=== PATIENT | male | born 1995 | race Caucasian/White ===

== ENCOUNTER 2016-08-14 10:52 | Emergency (ER) | payer BC ==
[2016-08-14 11:02] VITALS: BP 120/86
--- NOTE | 2016-08-14 11:52 | ERNOTE ---
Chest Pain/Cardiac HPI Date of Service: 08/14/16 Chief Complaint: Chest Pain Time Seen by Provider: 08/14/16 11:50 Source: patient, RN notes reviewed Exam Limitations: no limitations Immunizations: IMMUNIZATION HX History of Influenza Vaccine No Allergies/Adverse Reactions: Allergies No Known Allergies Allergy (Verified 08/14/16 11:03) Home Medications: HOME MEDICATIONS NK [No Home Medication] 01/26/14 [Last Taken Unknown] Narrative: 21 y/o male ambulatory to the ED for midsternal chest pain that began last evening. It has been intermittent. He reports missing dinner and having a gnawing feeling in his epigastrum and chest when he got home. He then ate, thinking this would help, but the pain became worse. He took Tums with some relief. He also reports having a cough and nasal congestion for about a week, but no fevers or chills. He chews tobacco and has occasional heart burn. He reports not being overly concerned about the pain, but his mother felt that he needed evaluation. Date (Duration): 08/13/16 Timing: intermittent Severity/Quality: moderate, aching, burning Location: substernal Chest Pain Radiation: no radiation Modifying Factors - Improves: Present: antacids Modifying Factors - Worsens: Present: eating Nitro Today/Relief: no nitro taken today Aspirin Treatment Today: no aspirin today Associated Symptoms: Present: headache, cough, heartburn. Absent: dizziness, syncope, shortness of breath, diaphoresis, fever/chills, palpitations, nausea, vomiting, abdominal pain, back pain, swelling/lump in chest Prior Chest Pain/Cardiac Workup: Reports: no prior cardiac workup. Denies: prior chest pain Prior Treatment: Denies: recently seen Review of Systems - Review of Systems Constitutional: Absent: recent illness, fever, chills, fatigue, malaise EYE: Present: no symptoms reported ENT: Present: nose congestion, nasal drainage. Absent: ear pain, sore throat Respiratory: Present: cough. Absent: shortness of breath, wheezing Cardiology: Present: chest pain. Absent: palpitations, syncope Gastrointestinal/Abdominal: Absent: diarrhea, constipation, abdominal pain Genitourinary: Present: no symptoms reported Musculoskeletal: Absent: back pain, neck pain Skin: Present: no symptoms reported Neurological: Present: headache. Absent: dizziness/light-headedness, weakness Endocrine: Present: no symptoms reported Hematologic/Lymphatic: Present: no symptoms reported Psych: Absent: anxiety - Patient's Past Medical History Patient History - Medical: Obesity Patient History - Cardiac/Respiratory: No pertinent hx Patient History - Cancer: No Hx of Cancer Patient History - Surgical Procedures: No surgical history Patient History - Other: None - Social History Living Situations: home Psych History: No pertinent hx Smoking Status: Never smoker Do you dip or chew tobacco: Yes Alcohol Use: occasionally Drug Use: none - Immunizations History of Influenza Vaccine: No Physical Exam - Physical Exam General Appearance: Present: wd/wn, alert, no apparent distress, obese Eye Exam: Normal inspection: bilateral Ears, Nose, Throat: Present: hearing grossly normal, cerumen impaction, nasal congestion, normal pharynx. Absent: sinus pain/drainage Neck: Present: normal inspection, nontender, supple Respiratory: Present: no respiratory distress, normal breath sounds, no accessory muscle use, chest nontender, lungs clear Cardiovascular/Chest: Present: regular rate, rhythm, no murmur, normal peripheral pulses Gastrointestinal/Abdominal: Present: nontender, soft Neurological Exam: Present: alert, oriented, normal mood/affect, no motor/ sensory deficits Skin Exam: Present: normal color, warm/dry ED Progress - Vital Signs Patient's Vital Signs:: I have reviewed the patient's vital signs. Vital Signs: Vital Signs 08/14/16 10:58 Temperature 35.8 C L Pulse Rate 62 Respiratory 18 Rate Blood Pressure 120/86 O2 Sat by Pulse 99 Oximetry - EKG EKG: NSR EKG read: Reviewed by me - Progress/Reassessment Chief Complaint: Chest Pain Progress:: Improved Progress Note-Subjective: 08/14/16 12:28 Symptoms relieved with GI cocktail Departure - Departure Clinical Impression: Gastroesophageal reflux Qualifiers: Esophagitis presence: esophagitis presence not specified Qualified Code(s): K21.9 - Gastro-esophageal reflux disease without esophagitis Disposition: Home self-care Condition: Good Instructions: Gastroesophageal Reflux Disease, Adult, [id number] Additional Instructions: Try over the counter Zantac or Mylanta/Maalox if symptoms return Consider taking something to prevent symptoms - like Prilosec - if they become more frequent Stop chewing tobacco Referrals: Anil Bentley DO [Primary Care Provider] -
[2016-08-14] MEDS ORDERED: LIDOCAINE HCL 20 ML UDC PO ONE (12:00)
[2016-08-14] MEDS ORDERED: MAG HYDROX/ALUMINUM HYD/SIMETH 30 ML UDC PO ONE (12:00)
[2016-08-14] MEDS ORDERED: SUCRALFATE 1 G/10 ML UDC PO ONE (12:00)
== END 2016-08-14 12:43 | disposition home or self-care (01) ==
LOC: ER 10:52
DX: K21.9 Gastro-esophageal reflux disease without esophagitis (principal); Z72.0 Tobacco use

== ENCOUNTER 2017-08-28 21:42 | Emergency (ER) | payer OTHER ==
[2017-08-28 21:50] VITALS: BP 148/67
[2017-08-28] MEDS ORDERED: DIPHTH,PERTUSS(ACELL),TET VAC 0.5 ML VIAL IM ONE ×2 (22:05→22:09)
[2017-08-28] MEDS ORDERED: CEPHALEXIN MONOHYDRATE 250 MG CAPSULE PO ONE (22:06)
[2017-08-28] MEDS ORDERED: CEPHALEXIN MONOHYDRATE 250 MG CAPSULE ONE (22:08)
--- NOTE | 2017-08-28 22:13 | ERNOTE ---
Medical Problem HPI - Narrative Date of Service: 08/28/17 - General Chief Complaint: Hand Injury/Pain Time Seen by Provider: 08/28/17 21:57 Source: patient Exam Limitations: no limitations - Immun/Allergies/Home Medications Immunizations: IMMUNIZATION HX Immunizations Up to Date Yes History of Influenza Vaccine No Allergies/Adverse Reactions: Allergies No Known Allergies Allergy (Verified 08/28/17 21:49) Home Medications: HOME MEDICATIONS Cephalexin Monohydrate [Keflex] 500 mg PO QID #40 cap 08/28/17 [Last Taken Unknown] - History of Present History Narrative: caught hand in winch Timing: constant Severity: moderate Modifying Factors - (Improves): Present: rest Modifying Factors - (Worsens): Present: movement Review of Systems - Narrative Narrative: unremarkable - Review of Systems Constitutional: Present: See HPI EYE: Present: no symptoms reported ENT: Present: no symptoms reported Respiratory: Present: no symptoms reported Cardiology: Present: no symptoms reported Gastrointestinal/Abdominal: Present: no symptoms reported Genitourinary: Present: no symptoms reported Musculoskeletal: Present: joint pain, joint swelling, other - pain and swelling in left index finger Skin: Present: See HPI, other - puncture wound to finger Neurological: Present: no symptoms reported Endocrine: Present: no symptoms reported Hematologic/Lymphatic: Present: no symptoms reported Psych: Present: no symptoms reported All Other Systems: All systems neg except as marked - Narrative Narrative: unremarkable - Patient's Past Medical History Patient History - Medical: No pertinent hx Patient History - Cardiac/Respiratory: No pertinent hx Patient History - Cancer: No Hx of Cancer Patient History - Surgical Procedures: No surgical history Patient History - Other: None - Family History Family History:: no untoward family reactions to anesthesia, no familial bleeding tendencies, no family history of clotting disorders, no family history of premature - Social History Living Situations: home Psych History: No pertinent hx Does anyone smoke in the home?: No Smoking Status: Never smoker Have you smoked in the past 12 months: No Do you dip or chew tobacco: Yes - 1 can Patient requests Smoking Cessation Consult: No Initiate information on Smoking Cessation: No Alcohol Use: rarely Drug Use: none - Immunizations Immunizations Up to Date: Yes History of Influenza Vaccine: No Physical Exam - Physical Exam General Appearance: Present: mild distress, anxious Head Exam: Present: normal inspection, no evidence of injury Eye Exam: Normal inspection: bilateral, PERRL: bilateral, EOMI: bilateral Ears, Nose, Throat: Present: normal ENT inspection Neck: Present: normal inspection, nontender Respiratory: Present: no respiratory distress, normal breath sounds, no accessory muscle use, chest nontender, lungs clear Cardiovascular/Chest: Present: regular rate, rhythm, no murmur, normal peripheral pulses Peripheral Pulses: N=norm/S=strong/W=weak/B=bound/A=absent: Carotid (R): Normal , Carotid (L): Normal, Radial (R): Normal, Radial (L): Normal, Femoral (R): Normal, Femoral (L): Normal, Dorsalis-pedis (R): Normal, Dorsalis-pedis (L): Normal Gastrointestinal/Abdominal: Present: normal bowel sounds, nontender, nondistended, soft, no organomegaly Back Exam: Present: normal inspection, normal range of motion, no CVA tenderness , no vertebral tenderness Extremity Exam: Present: normal except - - puncture wound to left index finger Neurological Exam: Present: alert, oriented, normal mood/affect, no motor/ sensory deficits Skin Exam: Present: normal color, warm/dry Lymphatic Exam: Present: no adenopathy ED Progress - Date and Time Seen: Date and Time: 08/28/17 22:11 condition unchanged - Vital Signs Patient's Vital Signs:: I have reviewed the patient's vital signs. Vital Signs: Vital Signs 08/28/17 21:47 Temperature 36.7 C Pulse Rate 89 Respiratory 16 Rate Blood Pressure 148/67 O2 Sat by Pulse 97 Oximetry - X-Ray X-Ray #1 X-Ray: hand - no osseus deformity or foreign seen - Progress/Reassessment Chief Complaint: Hand Injury/Pain Plan - Plan Plan: to be discharged Departure Clinical Impression: Puncture wound, hand - Departure Disposition: Home self-care Condition: Fair Instructions: Puncture Wound, [id number] Referrals: Anil Bentley DO [Primary Care Provider] - Prescriptions: Cephalexin Monohydrate [Keflex] 500 mg PO QID #40 cap
== END 2017-08-28 22:24 | disposition home or self-care (01) ==
LOC: ER 21:42 → MERGE 21:42 → ER 22:24
DX: S61.231A Puncture wound without foreign body of left index finger without damage to nail, initial encounter; W31.89XA Contact with other specified machinery, initial encounter